=== PATIENT | female | born 1965 | race Caucasian/White ===

== ENCOUNTER 2016-06-01 00:36 | Emergency (ER) | payer OTHER ==
--- NOTE | 2016-06-01 03:15 | ED NURSING NOTES ---
Clinical Report - Nurses Merged With [facility] [place] [address] 06/01/2016 0:38 Patient: GIUSEPPE ROSE TRIAGE Triage time 01:21. Chief Complaint: NECK PAIN. --01:24 Stephon Benitze R.N. 01:27 06/01/16. BP: 117/60. HR: 89. RR: 18. O2 saturation: 100%. Temp: 97.8 F. --01:29 Laith Leavitt R.N. Weight: 77.1 kg estimated. Height/Length: 67 inches Estimated. BMI: 26.6. --:29 Laith Leavitt R.N. Medications Unable to Obtain. --: Laith Leavitt R.N. Allergies No Known Drug Allergy. --01:28 Laith Leavitt R.N. History Arrived by EMS. Historian: patient. ( Pt was brought in by EMS. EMS stated she refused to talk to them, but was found at the bus stop and was brought in for possible weakness, per EMS. Pt was taken to the lobby where she asked for coffee, a sleeping cot and a cigarette. Pt was brought back into the room. She refused to get into the gown, refused to say why she was brought in and kept talking about her needing treatment, but would not say why. Pt then stated she was homeless and tired and needs a bed. Security was called to escort the pt back into the room, because she wanted to go into another pt's room.). --01:24 Stephon Benitez R.N. ( pt arrives from ems reports pain in her neck pt is hard to re direct). No history of recent trauma. Treatment OCULARIST: None. SOCIAL HX: Light tobacco smoker. No alcohol use or drug use. --:29 Laith Leavitt R.N. NURSING PROGRESS NOTES Patient transported to radiology. (02:43). --02:43 Stephon Benitez R.N. ( Pt walked out of her room to bathroom, pt walked to bathroom began urinating with door open. Pt is discharged but uncooperative no sign of understanding of discharge instructions.). --03:31 Laith Leavitt R.N. DISPOSITION / DISCHARGE Departure time: 4. Ability to learn limited by poor comprehension and poor cooperation. Discharge instructions provided and reviewed with the patient. Written instructions provided in Kyrgyz. The patient was discharged by the physician. ( Pt refused discharge vitals would not sign paper work). --03:28 Laith Leavitt R.N. Locked/Released at 06/08/2016 15:10 by Lucia Hopkins R.N.
--- NOTE | 2016-06-01 03:15 | ED CLINICAL REPORT ---
Clinical Report - Physicians/Mid Levels [facility] [address] [place] [address] 06/01/2016 0:38 Patient: GIUSEPPE ROSE Time Seen: 02:22. Arrived- By private vehicle. Historian- patient. Evaluation limited Pt resists history and exam. By curling up in a blanket. HISTORY OF PRESENT ILLNESS Chief Complaint: NECK PAIN. Onset- Unknown onset; Pt states there may have been an injury but will not give any details. and it is still present. (unknown onsets). It is described as being moderate in degree and in the area of the cervical spine. The quality is noted to be "pain". No radiation. No bladder dysfunction, bowel dysfunction, sensory loss or motor loss. Patient notes the possibility of an injury. No other injury. REVIEW OF SYSTEMS No difficulty breathing, chest pain, abdominal pain or difficulty with urination. PAST HISTORY PCP: None Homeless Illness:. SOCIAL HISTORY Residence: Still has [facility] she is homeless. ADDITIONAL NOTES The nursing notes have been reviewed. PHYSICAL EXAM Vital Signs: 06/01/2016 01:27 BP: 117/60. HR: 89. RR: 18. O2 saturation: 100%. Temp: 97.8 F. Appearance: (Curled in a blanket and actively resists efforts by MD to do history or exam.). ENT: (Atraumatic). Neck: Mild soft tissue tenderness in the mid central neck area. No lymphadenopathy. Respiratory: No respiratory distress. Abdomen: Soft and nontender. Back: Normal inspection. No tenderness. Skin: Skin warm. Normal skin color. Extremities: Extremities exhibit normal ROM. Extremities nontender. Neuro: No alteration in mental status. No cranial nerve deficit. No motor deficit. No sensory deficit. LABS, X-RAYS, AND EKG X-Rays: C-spine series negative. The X-rays were independently viewed by me. Note - Tests: (PROCEDURE: XR CERVICAL SPINE 2 OR 3 VIEW INDICATION: NECK TRAUMA/INJURY TECHNIQUE: Three views. COMPARISON: None. FINDINGS: Normal alignment without fracture. Straightening of the cervical spine. Mild degenerative changes of the lower cervical spine. Lateral masses of so are not well visualized but odontoid and prevertebral soft tissues are normal. IMPRESSION: 1. Straightening of the cervical spine suggestive of muscular spasm 2. Mild degenerative changes Dictated by: BELINDA ARGUETA MD D: NIRU;06/01/16 0732 <Electronically signed by BELINDA ARGUETA MD in OV>). PROGRESS AND PROCEDURES Course of Care: 03:08 06/01/16. The patient is currently homeless and is recently discharged from nursing home. It is currently well below freezing tonight. She has no significant illness or injury. She is at risk from the cold. She will be kept safe and warm and will be given information on warming shelters for use tomorrow night. She will not be bedded in the ED. CLINICAL IMPRESSION Acute neck pain. HOMELESSNESS. INSTRUCTIONS (WE GAVE YOU A LIST OF COLD WEATHER SHELTERS YOU MAY SIT IN THE LOBBY UNTIL 0600. YOU MAN NOT LIE DOWN). Understanding of the discharge instructions verbalized by patient. Follow-up with: [facility], , , [address], , [place], [id number] Follow up. Reason for referral: ESTABLISH PRIMARY CARE (Electronically signed by Jagdish Dalton MD 06/03/2016 22:33)
--- NOTE | 2016-06-01 03:15 | ED CLINICAL REPORT ---
Clinical Report - Physicians/Mid Levels [facility] [address] [place] [address] 06/01/2016 0:38 Patient: GIUSEPPE ROSE Time Seen: 02:22. Arrived- By private vehicle. Historian- patient. Evaluation limited Pt resists history and exam. By curling up in a blanket. HISTORY OF PRESENT ILLNESS Chief Complaint: NECK PAIN. Onset- Unknown onset; Pt states there may have been an injury but will not give any details. and it is still present. (unknown onsets). It is described as being moderate in degree and in the area of the cervical spine. The quality is noted to be "pain". No radiation. No bladder dysfunction, bowel dysfunction, sensory loss or motor loss. Patient notes the possibility of an injury. No other injury. REVIEW OF SYSTEMS No difficulty breathing, chest pain, abdominal pain or difficulty with urination. PAST HISTORY PCP: None Homeless Illness:. SOCIAL HISTORY Residence: Still has [facility] she is homeless. ADDITIONAL NOTES The nursing notes have been reviewed. PHYSICAL EXAM Vital Signs: 06/01/2016 01:27 BP: 117/60. HR: 89. RR: 18. O2 saturation: 100%. Temp: 97.8 F. Appearance: (Curled in a blanket and actively resists efforts by MD to do history or exam.). ENT: (Atraumatic). Neck: Mild soft tissue tenderness in the mid central neck area. No lymphadenopathy. Respiratory: No respiratory distress. Abdomen: Soft and nontender. Back: Normal inspection. No tenderness. Skin: Skin warm. Normal skin color. Extremities: Extremities exhibit normal ROM. Extremities nontender. Neuro: No alteration in mental status. No cranial nerve deficit. No motor deficit. No sensory deficit. LABS, X-RAYS, AND EKG X-Rays: C-spine series negative. The X-rays were independently viewed by me. Note - Tests: (PROCEDURE: XR CERVICAL SPINE 2 OR 3 VIEW INDICATION: NECK TRAUMA/INJURY TECHNIQUE: Three views. COMPARISON: None. FINDINGS: Normal alignment without fracture. Straightening of the cervical spine. Mild degenerative changes of the lower cervical spine. Lateral masses of so are not well visualized but odontoid and prevertebral soft tissues are normal. IMPRESSION: 1. Straightening of the cervical spine suggestive of muscular spasm 2. Mild degenerative changes Dictated by: BELINDA ARGUTEA MD D: NIRU;06/01/16 0732 <Electronically signed by BELINDA ARGUETA MD in OV>). PROGRESS AND PROCEDURES Course of Care: 03:08 06/01/16. The patient is currently homeless and is recently discharged from [facility]. It is currently well below freezing tonight. She has no significant illness or injury. She is at risk from the cold. She will be kept safe and warm and will be given information on warming shelters for use tomorrow night. She will not be bedded in the ED. CLINICAL IMPRESSION Acute neck pain. HOMELESSNESS. INSTRUCTIONS (WE GAVE YOU A LIST OF COLD WEATHER SHELTERS YOU MAY SIT IN THE LOBBY UNTIL 0600. YOU MAN NOT LIE DOWN). Understanding of the discharge instructions verbalized by patient. Follow-up with: [facility], , , [address], , [place], [id number] Follow up. Reason for referral: ESTABLISH PRIMARY CARE (Electronically signed by Jagdish Dalton MD 06/03/2016 22:33)
--- NOTE | 2016-06-01 03:15 | ED ORDER SUMMARY ---
..... Patient: GIUSEPPE ROSE OrderSheet [facility] VisitID: [id number] [address] [place] [address] 50y, F Registration Date/Time: 06/01/2016 ORDER SHEET Weight: 77.1 kg (estimated) Allergies: No Known Drug Allergy GENERAL ORDERS: Cervical Spine 2 or 3V Urgent (02:36 06/01/2016 Bob WALSH) (2:43 Eamon Nelson) MEDICATION ORDERS: IV FLUIDS: ORDER SHEET NOTES: [Electronically signed by Jagdish Dalton MD (22:33 06/03/2016)] [Electronically signed by Lucia Hopkins R.N. (15:10 06/08/2016)] [Electronically locked/signed by Lucia Hopkins R.N. (15:10 06/08/2016)]
--- NOTE | 2016-06-01 03:15 | ED NURSING NOTES ---
Clinical Report - Nurses [facility] [place] [address] 06/01/2016 0:38 Patient: GIUSEPPE ROSE TRIAGE Triage time 01:21. Chief Complaint: NECK PAIN. --01:24 Stephon Benitez R.N. 01:27 06/01/16. BP: 117/60. HR: 89. RR: 18. O2 saturation: 100%. Temp: 97.8 F. --01:29 Laith Leavitt R.N. Weight: 77.1 kg estimated. Height/Length: 67 inches Estimated. BMI: 26.6. --:29 Laith Leavitt R.N. Medications Unable to Obtain. --: Laith Leavitt R.N. Allergies No Known Drug Allergy. --01:28 Laith Leavitt R.N. History Arrived by EMS. Historian: patient. ( Pt was brought in by EMS. EMS stated she refused to talk to them, but was found at the bus stop and was brought in for possible weakness, per EMS. Pt was taken to the lobby where she asked for coffee, a sleeping cot and a cigarette. Pt was brought back into the room. She refused to get into the gown, refused to say why she was brought in and kept talking about her needing treatment, but would not say why. Pt then stated she was homeless and tired and needs a bed. Security was called to escort the pt back into the room, because she wanted to go into another pt's room.). --01:24 Stephon Benitez R.N. ( pt arrives from ems reports pain in her neck pt is hard to re direct). No history of recent trauma. Treatment BLOCK INSPECTOR: None. SOCIAL HX: Light tobacco smoker. No alcohol use or drug use. --:29 Laith Leavitt R.N. NURSING PROGRESS NOTES Patient transported to radiology. (02:43). --02:43 Stephon Benitez R.N. ( Pt walked out of her room to bathroom, pt walked to bathroom began urinating with door open. Pt is discharged but uncooperative no sign of understanding of discharge instructions.). --03:31 Laith Leavitt R.N. DISPOSITION / DISCHARGE Departure time: 4. Ability to learn limited by poor comprehension and poor cooperation. Discharge instructions provided and reviewed with the patient. Written instructions provided in Kiswahili. The patient was discharged by the physician. ( Pt refused discharge vitals would not sign paper work). --03:28 Laith Leavitt R.N. Locked/Released at 06/08/2016 15:10 by Lucia Hopkins R.N.
--- NOTE | 2016-06-01 03:15 | ED ORDER SUMMARY ---
..... Patient: GIUSEPPE ROSE OrderSheet [facility] VisitID: [id number] [address] [place] [address] 50y, F Registration Date/Time: 06/01/2016 ORDER SHEET Weight: 77.1 kg (estimated) Allergies: No Known Drug Allergy GENERAL ORDERS: Cervical Spine 2 or 3V Urgent (02:36 06/01/2016 Bob WALSH) (2:43 Eamon Nelson) MEDICATION ORDERS: IV FLUIDS: ORDER SHEET NOTES: [Electronically signed by Jagdish Dalton MD (22:33 06/03/2016)] [Electronically signed by Lucia Hopkins R.N. (15:10 06/08/2016)] [Electronically locked/signed by Lucia Hopkins R.N. (15:10 06/08/2016)]
--- NOTE | 2016-06-01 07:33 | DIAGNOSTIC IMAGING REPORT ---
PROCEDURE: XR CERVICAL SPINE 2 OR 3 VIEW INDICATION: NECK TRAUMA/INJURY TECHNIQUE: Three views. COMPARISON: None. FINDINGS: Normal alignment without fracture. Straightening of the cervical spine. Mild degenerative changes of the lower cervical spine. Lateral masses of so are not well visualized but odontoid and prevertebral soft tissues are normal. IMPRESSION: 1. Straightening of the cervical spine suggestive of muscular spasm 2. Mild degenerative changes
--- NOTE | 2016-06-08 15:10 | ED MAR SUMMARY ---
..... Medication Administration Record [facility] [address] [place], [place] [id number] Patient: GIUSEPPE ROSE Visit ID: [id number] 50y, F Weight: 77.1 kg Height/Length: 67 in BMI: 26.6 ALLERGIES: No Known Drug Allergy
--- NOTE | 2016-06-08 15:10 | ED MAR SUMMARY ---
..... Medication Administration Record [facility] [address] [place], [place] [id number] Patient: GIUSEPPE ROSE Visit ID: [id number] 50y, F Weight: 77.1 kg Height/Length: 67 in BMI: 26.6 ALLERGIES: No Known Drug Allergy
--- NOTE | 2016-06-08 15:10 | ED DISCHARGE INSTRUCTIONS ---
Patient: GIUSEPPE ROSE General Instructions [facility] VisitID: [id number] [address] [place] [address] 50y, F Registration Date/Time: 06/01/2016 Acute neck pain. HOMELESSNESS. INSTRUCTIONS (WE GAVE YOU A LIST OF COLD WEATHER SHELTERS YOU MAY SIT IN THE LOBBY UNTIL 0600. YOU MAN NOT LIE DOWN). Understanding of the discharge instructions verbalized by patient. Follow-up with: [facility], , , [address], , [place], [address] Follow up. Reason for referral: ESTABLISH PRIMARY CARE ADDITIONAL INFORMATION Neck Pain [No Trauma] There are several possible causes of neck pain without injury: You can get a minor ligament sprain or muscle strain from a sudden minor neck movement. Sleeping with your neck in an awkward position can also cause this. Some persons respond to emotional stress by tensing the muscles of their neck, shoulders and upper back. Chronic spasm in these muscles can cause neck pain and sometimes headaches. Gradualwear and tearof the joints in the spine can cause degenerative arthritis.This can be a source of occasional or chronic neck pain. With aging or repeated small injuries to the neck, the spinal disks (the cushions between each spinal bone) may bulge and put pressure on a nearby spinal nerve. This causes tingling, pain or numbness spreading from the neck to the shoulder, arm or hand on one side. Acute neck pain usually gets better in one to two weeks. Neck pain related to disk disease, arthritis in the spinal joints or spinal stenosis (narrowing of the spinal canal) can become chronic and last for months or years. Unless you had a forceful physical injury (for example, a car accident or fall), X-rays are usually not ordered for the initial evaluation of neck pain. If pain continues and does not respond to medical treatment, x-rays and other tests may be performed at a later time. Home Care: Rest and relax the muscles. Use a comfortable pillow that supports the head and keeps the spine in a neutral position. The position of the head should not be tilted forward or backward. A rolled up towel may help for a custom fit. Some persons find relief with heat (hot shower, hot bath or heating pad) and massage, while others prefer cold packs (crushed or cubed ice in a plastic bag, wrapped in a towel) . Try both and use the method that feels best for 20 minutes several times a day. You may use acetaminophen (Tylenol) or ibuprofen (Motrin, Advil) to control pain, unless another medicine was prescribed. [ NOTE : If you have chronic liver or kidney disease or ever had a stomach ulcer or GI bleeding, talk with your doctor before using these medicines.] Follow Up with your physician or this facility if your symptoms do not show signs of improvement after one week. Physical therapy or further tests may be needed. [NOTE: A radiologist will review any X-rays or CT scans that were taken. We will notify you of any new findings that may affect your care.] Get Prompt Medical Attention if any of the following occur: Pain becomes worse or spreads into one or both arms Weakness or numbness in one or both arms Increasing headache Neck swelling, difficulty or painful swallowing Fever of 100.4F (38C) or higher, or as directed by your healthcare provider You have been given the following additional information: Neck Pain, No Trauma (Electronically signed by Jagdish Dalton MD 06/03/2016 22:33)
--- NOTE | 2016-06-08 15:10 | ED DISCHARGE INSTRUCTIONS ---
Patient: GIUSEPPE ROSE General Instructions [facility] VisitID: [id number] [address] [place] [address] 50y, F Registration Date/Time: 06/01/2016 Acute neck pain. HOMELESSNESS. INSTRUCTIONS (WE GAVE YOU A LIST OF COLD WEATHER SHELTERS YOU MAY SIT IN THE LOBBY UNTIL 0600. YOU MAN NOT LIE DOWN). Understanding of the discharge instructions verbalized by patient. Follow-up with: [facility], , , [address], , [place], [address] Follow up. Reason for referral: ESTABLISH PRIMARY CARE ADDITIONAL INFORMATION Neck Pain [No Trauma] There are several possible causes of neck pain without injury: You can get a minor ligament sprain or muscle strain from a sudden minor neck movement. Sleeping with your neck in an awkward position can also cause this. Some persons respond to emotional stress by tensing the muscles of their neck, shoulders and upper back. Chronic spasm in these muscles can cause neck pain and sometimes headaches. Gradualwear and tearof the joints in the spine can cause degenerative arthritis.This can be a source of occasional or chronic neck pain. With aging or repeated small injuries to the neck, the spinal disks (the cushions between each spinal bone) may bulge and put pressure on a nearby spinal nerve. This causes tingling, pain or numbness spreading from the neck to the shoulder, arm or hand on one side. Acute neck pain usually gets better in one to two weeks. Neck pain related to disk disease, arthritis in the spinal joints or spinal stenosis (narrowing of the spinal canal) can become chronic and last for months or years. Unless you had a forceful physical injury (for example, a car accident or fall), X-rays are usually not ordered for the initial evaluation of neck pain. If pain continues and does not respond to medical treatment, x-rays and other tests may be performed at a later time. Home Care: Rest and relax the muscles. Use a comfortable pillow that supports the head and keeps the spine in a neutral position. The position of the head should not be tilted forward or backward. A rolled up towel may help for a custom fit. Some persons find relief with heat (hot shower, hot bath or heating pad) and massage, while others prefer cold packs (crushed or cubed ice in a plastic bag, wrapped in a towel) . Try both and use the method that feels best for 20 minutes several times a day. You may use acetaminophen (Tylenol) or ibuprofen (Motrin, Advil) to control pain, unless another medicine was prescribed. [ NOTE : If you have chronic liver or kidney disease or ever had a stomach ulcer or GI bleeding, talk with your doctor before using these medicines.] Follow Up with your physician or this facility if your symptoms do not show signs of improvement after one week. Physical therapy or further tests may be needed. [NOTE: A radiologist will review any X-rays or CT scans that were taken. We will notify you of any new findings that may affect your care.] Get Prompt Medical Attention if any of the following occur: Pain becomes worse or spreads into one or both arms Weakness or numbness in one or both arms Increasing headache Neck swelling, difficulty or painful swallowing Fever of 100.4F (38C) or higher, or as directed by your healthcare provider You have been given the following additional information: Neck Pain, No Trauma (Electronically signed by Jagdish Dalton MD 06/03/2016 22:33)
--- NOTE | 2016-06-08 15:11 | ED MED RECONCILIATION SUMMARY ---
Patient: GIUSEPPE ROSE Medication Reconciliation Report [facility] VisitID: [id number] [place] [address] 50y, F Registration Date/Time: 06/01/2016 Weight: 77.1 kg Height/Length: 67 in. BMI: 26.6 ALLERGIES: No Known Drug Allergy The patient's Home Medications are listed below: Unable to obtain. The source(s) of the original Home Medication information: Not obtained. The following Medications were given to the patient in the Emergency Department: None. The following Medications were prescribed to the patient: None.
--- NOTE | 2016-06-08 15:11 | ED MED RECONCILIATION SUMMARY ---
Patient: GIUSEPPE ROSE Medication Reconciliation Report [facility] VisitID: [id number] [place] [address] 50y, F Registration Date/Time: 06/01/2016 Weight: 77.1 kg Height/Length: 67 in. BMI: 26.6 ALLERGIES: No Known Drug Allergy The patient's Home Medications are listed below: Unable to obtain. The source(s) of the original Home Medication information: Not obtained. The following Medications were given to the patient in the Emergency Department: None. The following Medications were prescribed to the patient: None.
== END 2016-06-01 03:25 | disposition home or self-care (01) ==
LOC: ED SRH 00:36
DX: M54.2 Cervicalgia (principal); Z59.0 Homelessness; F17.210 Nicotine dependence, cigarettes, uncomplicated